=== PATIENT | male | born 1970 | race African-American/Black ===

== ENCOUNTER 2021-04-30 09:48 | Emergency (ER) | payer SELFPAY ==
[2021-04-30 10:25] LABS: Amphetamine Detected (NotDetected); Barbiturates Screen Not Detected (NotDetected); Benzodiazepine Screen Not Detected (NotDetected); Cocaine Metabolite Screen Detected (NotDetected); Methadone Not Detected (NotDetected); Methamphetamine Detected (NotDetected); Opiate Screen Not Detected (NotDetected); Oxycodone Screen Not Detected (NotDetected); Phencyclidine (PCP) Not Detected (NotDetected); THC/Cannabinoid Screen Detected (NotDetected); Tricyclic Screen Not Detected (NotDetected)
[2021-04-30 10:42] LABS: #Eosinphils 0.1 10x3/uL (0.0-0.5); #Monocytes 0.7 10x3/uL (0.0-1.1); #Neutrophils 3.2 10x3/uL (1.5-8.4); %Basophils 0.3 % (0.0-2.0); %Lymphocytes 32.9 % (18.0-47.0); %Monocytes 11.3 % (0.0-10.0); %Neutrophils 53.2 % (40.0-75.0); Hemoglobin 13.7 g/dL (13.5-17.5); Mean Corpuscular HGB CONC 34.9 g/dL (32.0-36.0); Mean Corpuscular Hemoglobin 28.5 pg (27.0-33.0); Mean Corpuscular Volume 81.9 fl (81.2-95.1); Mean Platelet Volume 8.9 fl (7.4-10.4); Platelet Count 244 10x3/uL (150-450)
[2021-04-30 10:55] LABS: ALT (SGPT) 42 U/L (8-55); AST (SGOT) 64 U/L (5-34); Acetaminophen Less than 6.0 mcg/mL (10.0-30.0); Albumin 4.3 g/dL (3.5-5.0); Alcohol Less than 10 mg/dL (Less than 10); Alkaline Phosphatase 64 U/L (40-110); Anion Gap 13 mmol/L (10-20); BUN (Urea Nitrogen) 18 mg/dL (8.9-20.6); Bilirubin, Total 0.8 mg/dL (0.2-1.2); CK (CPK) 1550 U/L (30-200); Calc. Creatinine Clearance 0 mL/min (70-130); Calcium 8.7 mg/dL (7.8-10.44); Carbon Dioxide 26 mmol/L (22-29); Chloride 100 mmol/L (98-107); Globulin 2.8 g/dL (2.4-3.5); Glucose 90 mg/dL (70-105); Lipase 34 U/L (8-78); Magnesium 2.2 mg/dL (1.6-2.6); Protein, Total 7.1 g/dL (6.0-8.3); Salicylate Less than 8.0 mg/dL (15.0-30.0); Sodium 135 mmol/L (136-145)
== END 2021-04-30 12:45 | disposition home or self-care (01) ==
LOC: CSHERS 09:48
DX: T40.711A Poisoning by cannabis, accidental (unintentional), initial encounter (principal); T40.5X1A Poisoning by cocaine, accidental (unintentional), initial encounter; M62.82 Rhabdomyolysis
CPT/HCPCS: 36415; 80053; 80306; 80307; 82550; 83605; 83690; 83735; 85025; 93005

== ENCOUNTER 2021-09-06 18:38 | Emergency (ER) | payer OTHER, SELFPAY ==
[2021-09-06] MEDS ORDERED: Ketorolac Tromethamine 30 MG/ML VIAL ONE (19:47)
== END 2021-09-06 21:21 ==
LOC: CSHERS 18:38
DX: M25.511 Pain in right shoulder (principal)
CPT/HCPCS: 71045; 93005; 96372; J1885